=== PATIENT | male | born 1960 | race Caucasian/White ===

== ENCOUNTER 2018-12-23 07:17 | Inpatient (IN) | payer OTHER ==
[~2018-12-23] VITALS: Ht 177.8 cm; Wt 145.1 kg
[~2018-12-23 07:17] MED LIST: LASIX20 MG; LOSARTAN POTASS50 MG; LOSARTAN-HCTZ1 EAC2; METFORMIN HCL500 MG; METOPROLOL SUC100 MG; XARELTO20 MG
[2018-12-23] MEDS ORDERED: JARDIANCE25 MG (07:30)
[2018-12-23] MEDS ORDERED: FORTAMET1000 MG (07:30)
[2018-12-23] MEDS ORDERED: LIPITOR40 MG (07:31)
[2018-12-23] MEDS ORDERED: CARDURA (07:32)
[2018-12-23] MEDS ORDERED: ALLOPURINOL300 MG (07:32)
[2018-12-23] MEDS ORDERED: VITAMIN B-125000 MC2 (07:33)
[2018-12-23] MEDS ORDERED: CENTRUM MEN'S1 EACH (07:34)
[2018-12-24] MEDS ORDERED: CARDURA1 MG (08:13)
== END 2018-12-29 12:08 | disposition home or self-care (01) | DRG 65 ==
LOC: ER 07:17 → MEDJ 19:12
PROVIDERS: ADMIT Internal Medicine
PROC: BW28ZZZ Computerized Tomography (CT Scan) of Head (ICD-10-PCS; principal; 2018-12-23)
PROC: 4A12X4Z Monitoring of Cardiac Electrical Activity, External Approach (ICD-10-PCS; 2018-12-23)
PROC: B246ZZZ Ultrasonography of Right and Left Heart (ICD-10-PCS; 2018-12-24)
PROC: B345ZZZ Ultrasonography of Bilateral Common Carotid Arteries (ICD-10-PCS; 2018-12-24)
PROC: B030ZZZ Magnetic Resonance Imaging (MRI) of Brain (ICD-10-PCS; 2018-12-24)
DX: I63.412 Cerebral infarction due to embolism of left middle cerebral artery (principal); G81.91 Hemiplegia, unspecified affecting right dominant side; R47.81 Slurred speech; G47.33 Obstructive sleep apnea (adult) (pediatric); R47.01 Aphasia; I48.0 Paroxysmal atrial fibrillation; I10 Essential (primary) hypertension; R42 Dizziness and giddiness; E78.00 Pure hypercholesterolemia, unspecified; E11.9 Type 2 diabetes mellitus without complications; J44.9 Chronic obstructive pulmonary disease, unspecified; E66.8 Other obesity; Z79.01 Long term (current) use of anticoagulants; Z99.81 Dependence on supplemental oxygen
CPT/HCPCS: 70553

== ENCOUNTER 2019-04-18 15:53 | Emergency (ER) | payer OTHER ==
[~2019-04-18] VITALS: Ht 177.8 cm; Wt 148.3 kg
[~2019-04-18 15:53] MED LIST changes: +ALLOPURINOL300 MG; +CARDURA; +CARDURA1 MG; +CENTRUM MEN'S1 EACH; +FORTAMET1000 MG; +JARDIANCE25 MG; +LIPITOR40 MG; +VITAMIN B-125000 MC2
[2019-04-18] MEDS ORDERED: LEVOTHYROXINE25 MCG (16:32)
== END 2019-04-18 22:57 | disposition home or self-care (01) ==
LOC: ER 15:53
DX: S30.0XXA Contusion of lower back and pelvis, initial encounter (principal); R42 Dizziness and giddiness; R41.0 Disorientation, unspecified; W18.09XA Striking against other object with subsequent fall, initial encounter; Y93.89 Activity, other specified; Y92.89 Other specified places as the place of occurrence of the external cause; Y99.8 Other external cause status

== ENCOUNTER → 2020-12-25 07:48 | Outpatient (CLI) | payer OTHER ==
[~2020-12-25 07:48] MED LIST changes: +LEVOTHYROXINE25 MCG
== END | disposition home or self-care (01) ==
LOC: NUCLEAR 07:00
PROVIDERS: ATTEND Internal Medicine Cardiovascular Disease
DX: I20.9 Angina pectoris, unspecified (principal); E78.5 Hyperlipidemia, unspecified; R03.0 Elevated blood-pressure reading, without diagnosis of hypertension; I42.8 Other cardiomyopathies
CPT/HCPCS: 78452; 93017; A9500

== ENCOUNTER 2021-04-17 13:13 | Emergency (ER) | payer OTHER ==
[~2021-04-17] VITALS: Ht 180.3 cm; Wt 132.0 kg
[2021-04-17] MEDS ORDERED: DUI500 PO (15:57)
== END 2021-04-17 16:06 | disposition home or self-care (01) ==
LOC: ER 13:13
DX: R53.81 Other malaise (principal); M79.605 Pain in left leg

== ENCOUNTER 2022-12-17 07:02 | Outpatient (CLI) | payer OTHER ==
[~2022-12-17 07:02] MED LIST changes: +DUI500 PO
== END 2022-12-17 07:09 | disposition home or self-care (01) ==
LOC: SONOGRAMA 07:02
PROVIDERS: ATTEND Internal Medicine
DX: R10.30 Lower abdominal pain, unspecified (principal); R10.10 Upper abdominal pain, unspecified

== ENCOUNTER 2023-12-15 18:05 | Inpatient (IN) | payer OTHER ==
[~2023-12-15] VITALS: Ht 152.4 cm; Wt 131.5 kg
--- NOTE | 2023-12-15 18:32 | NUR ---
PTE ALERTA Y ORIENTADO X3, REFIERE DOLOR DE PECHO Y DIFICULTAD RESPIRATORIAL. AL MOMENTO DE TRIAGE SE OBSERVA PTE CON DISTRESS RESPIRATORIO, SATURANDO 95%. SE REALIZA EKG Y SE PRESENTA A . SE ACOMODA PTE EN UNIDAD DE CHEST PAIN Y SE CONECTA A MONITOR CARDIACO Y OXIMETRIA DE PULSO CONTINUA.
--- NOTE | 2023-12-15 19:34 | NUR ---
SE RECIBE A PTE MASCULINO DE 62 ANOS POR DIFICULTAD RESPIRATORIA Y PALPITACIONES EN LA UNIDAD DE DOLOR DE PECHO EL CUAL ES COLOCADO EN CAMA BAJA CONECTADO A MONITOR CARDIACO Y OXYMETRIA DE PULSO. SE COLOCAN DOS CANALIZACIONES EN BRAZO HOLDEN Y SE RECOLECTAN MUESTRAS DE LAB [facility] EL PROTOCOLOCO DE DOLOR DE PECHO. SE COLOCA CANULA NASAL A 4 LI/HR DE FORMA PREVENTIVA.
[2023-12-15] MEDS ORDERED: LEVALBUTEROL HCL 0.63 MG/3 ML SOLUTION IH ONE (20:30)
[2023-12-15] MEDS ORDERED: GUAIFENESIN/DEXTROMETHORPHAN 10ML BLIST.PACK PO ONE (20:30)
[2023-12-15] MEDS ORDERED: GUAIFENESIN/DEXTROMETHORPHAN 5ML BLIST.PACK PO ONE (20:54)
[2023-12-15 21:03] LABS: HEMATOCRIT 40.1 % (39.0-48.0); HEMOGLOBIN 13.7 g/dL (13-16.00); MEAN CORPUSCULAR HEMOGLOBIN 31.7 pg (27.00-32.0); PLATELET COUNT 218 K/uL (150-450); RED BLOOD COUNT 4.31 M/uL (4.00-6.00); RED CELL DISTRIBUTION WIDTH 13.9 % (11.5-14.5)
[2023-12-15 21:06] LABS: ABG PH 7.465 (7.35-7.45); ABG PO2 81.7 mmHg (80-100); ABG pCO2 34.2 mmHg (35-45); SaO2 96.7 %
[2023-12-15 21:07] LABS: ALBUMIN 3.3 gm/dL (3.4-5.0); BILIRUBIN TOTAL 0.59 mg/dL (0.3-1.2); CALCIUM 8.6 mg/dL (8.5-10.1); GFR 75.96; GLOBULINA 4.7 G/DL (2.4-3.5); POTASSIUM 3.96 mEq/L (3.5-5.1)
[2023-12-15 21:07] LABS: BASE EXCESS 0.9 mmol/l; Tco2 25.1 mmol/l; puncture site BRADIAL RIGHT
[2023-12-15 21:08] LABS: allen test SATISFACTORY; o2 36 %
--- NOTE | 2023-12-15 23:21 | NUR ---
SE RECIBE PTE ALERTA Y ORIENTADO POR REVA ESFERAS CON CANULA NALSA A 3LT. ESTA CONECTADO A MONITOR CARDIACO, NBP Y OXIMETRIA CONTINUA. TIENE CANALIZACIONES X2 PATENTE DAVIDA DE EDEMA Y ERITEMA.
--- NOTE | 2023-12-15 23:22 | NUR ---
PTE SE ENCUENTRA EN DAX BAJA, BARANADAS ELEVADAS, FRENOS AJUSTADOS Y TIMBRE ACCESIBLE.
[2023-12-16] MEDS ORDERED: FUROsemide 20 MG/2 ML VIAL IV SCH (00:52)
[2023-12-16] MEDS ORDERED: NITROGLYCERIN IN 5 % DEXTROSE 250 ML IV SCH (00:54)
[2023-12-16] MEDS ORDERED: ACETAMINOPHEN 500 MG GEL..CAP PO PRN (01:00)
[2023-12-16] MEDS ORDERED: INSULIN LISPRO 1,000 UNIT/10 ML UNITS SUBCUTANEO PRN (01:00)
[2023-12-16] MEDS ORDERED: METHYLPREDNISOLONE SOD SUCC 125 MG VIAL IV ONE (01:00)
[2023-12-16] MEDS ORDERED: AMIODARONE HCL 50 MG/ML AMPUL IV ONE ×2 (01:00→01:08)
[2023-12-16] MEDS ORDERED: DEXTROSE 50 % IN WATER 0.5 G/ML DISP.SYRIN IV PRN (01:00)
[2023-12-16] MEDS ORDERED: IPRATROPIUM BROMIDE 0.5 MG/2.5 ML AMPUL.NEB IH SCH (01:00)
[2023-12-16] MEDS ORDERED: LEVALBUTEROL HCL 1.25 MG/3 ML SOLUTION IH SCH (01:00)
[2023-12-16] MEDS ORDERED: NITROGLYCERIN IN 5 % DEXTROSE 50 MG/250 ML BOTTLE IV ONE (01:08)
[2023-12-16] MEDS ORDERED: FUROsemide 20 MG/2 ML VIAL ONE ×2 (01:09→21:31)
[2023-12-16] MEDS ORDERED: METHYLPREDNISOLONE SOD SUCC 40 MG VIAL ONE (01:10)
[2023-12-16 03:07] LABS: D DIMER 0.81 MG/L; INR 1.22; PARTIAL THROMBOPLASTIN TIME 36.8 SECONDS (22.0-34.0); PH,URINE 6.5 (5.0-8.0); PROTHROMBIN TIME 12.6 SECONDS (9.0-11.5); URINE APPEARANCE Clear; URINE BILIRRUBIN Negative (NEGATIVE); URINE BLOOD Moderate; URINE COLOR Yellow; URINE GLUCOSE Negative (NEGATIVE); URINE LEUKOCYTE Negative; URINE NITRATE Negative
[2023-12-16 03:08] LABS: URINE BACTERIA 57.9 uL (0.0-1933); URINE EPITHELIAL CELLS 27.5 uL (0.0-38.8); URINE RBC 189.9 uL (0.0-20.8); URINE WBC 24.2 uL (0.0-23.2)
[2023-12-16 03:18] LABS: URINE PROTEIN 300 (NEGATIVE)
[2023-12-16] MEDS ORDERED: IPRATROPIUM BROMIDE 0.5 MG/2.5 ML AMPUL.NEB IH ONE ×5 (03:25→21:56)
[2023-12-16] MEDS ORDERED: LEVALBUTEROL HCL 1.25 MG/3 ML SOLUTION IH ONE (03:25)
[2023-12-16] MEDS ORDERED: DEXTROSE 50 % IN WATER 0.5 G/ML VIAL IV PRN (06:45)
[2023-12-16] MEDS ORDERED: AMIODARONE IN DEXTROSE,ISO-OSM 360 MG/200 ML IV.SOLN IV ONE ×2 (08:03→20:26)
[2023-12-16] MEDS ORDERED: INSULIN LISPRO 1,000 UNIT/10 ML UNITS SUBCUTANEO ONE ×3 (08:37→15:55)
[2023-12-16] MEDS ORDERED: FAMOTIDINE/PF 20 MG/2 ML VIAL ONE (08:37)
[2023-12-16] MEDS ORDERED: RIVAROXABAN 20 MG TABLET PO SCH (09:00)
[2023-12-16] MEDS ORDERED: FAMOTIDINE/PF 20 MG in 0.9 % SODIUM CHLORIDE 8 ML IV PUSH SCH (09:00)
[2023-12-16] MEDS ORDERED: ATORVASTATIN CALCIUM 40 MG TABLET PO SCH (09:00)
[2023-12-16] MEDS ORDERED: CEFTRIAXONE SODIUM 2,000 MG in DEXTROSE 5 % IN WATER 100 ML IV SCH (12:00)
[2023-12-16] MEDS ORDERED: DOXYCYCLINE HYCLATE 100 MG TABLET PO SCH (17:00)
[2023-12-16] MEDS ORDERED: DOXYCYCLINE HYCLATE 100 MG CAPSULE PO SCH (17:00)
[2023-12-17] MEDS ORDERED: INSULIN LISPRO 1,000 UNIT/10 ML UNITS SUBCUTANEO ONE ×3 (00:38→20:48)
[2023-12-17 02:57] LABS: HEMATOCRIT 40.4 % (39.0-48.0); HEMOGLOBIN 13.8 g/dL (13-16.00); MEAN CELL VOLUME 92.5 fL (80.0-100.00); MEAN CORPUSCULAR HEMOGLOBIN 31.5 pg (27.00-32.0); MEAN CORPUSCULAR HGB CONC 34.1 g/dl (32.0-36.0); PLATELET COUNT 233 K/uL (150-450); RED BLOOD COUNT 4.37 M/uL (4.00-6.00); RED CELL DISTRIBUTION WIDTH 13.9 % (11.5-14.5)
[2023-12-17 03:50] LABS: BILIRUBIN TOTAL 0.42 mg/dL (0.3-1.2); CALCIUM 8.7 mg/dL (8.5-10.1); CREATININE SERUM 1.1 mg/dL (0.70-1.30); GFR 67.83; GLOBULINA 4.5 G/DL (2.4-3.5); MAGNESIUM 2.4 mg/dL (1.8-2.4); PHOSPHOROUS 3.7 mg/dL (2.5-4.9); POTASSIUM 4.13 mEq/L (3.5-5.1); TOTAL PROTEIN 7.5 gm/dL (6.4-8.2)
[2023-12-17 03:53] LABS: C-REACTIVE PROTEIN 11.4 MG/DL (0.00-0.29)
[2023-12-17] MEDS ORDERED: LEVOTHYROXINE SODIUM 25 MCG TABLET PO SCH (06:00)
[2023-12-17] MEDS ORDERED: NITROGLYCERIN IN 5 % DEXTROSE 250 ML IV SCH (07:15)
[2023-12-17] MEDS ORDERED: LEVALBUTEROL HCL 1.25 MG/3 ML SOLUTION IH ONE (08:41)
[2023-12-17] MEDS ORDERED: IPRATROPIUM BROMIDE 0.5 MG/2.5 ML AMPUL.NEB IH ONE (08:41)
[2023-12-17] MEDS ORDERED: AMIODARONE IN DEXTROSE,ISO-OSM 360 MG/200 ML IV.SOLN IV ONE ×2 (08:43→22:17)
[2023-12-17] MEDS ORDERED: INSULIN GLARGINE,HUM.REC.ANLOG 1,000 UNITS/10 ML UNITS SUBCUTANEO SCH (09:00)
[2023-12-17] MEDS ORDERED: AMIODARONE HCL 200 MG TABLET PO SCH (09:00)
[2023-12-17] MEDS ORDERED: METOPROLOL SUCCINATE 50 MG TAB.SR.24H PO SCH (10:23)
[2023-12-17] MEDS ORDERED: ACETAMINOPHEN 500 MG GEL..CAP PO ONE ×2 (17:46→20:13)
[2023-12-17] MEDS ORDERED: LEVALBUTEROL HCL 0.63 MG/3 ML SOLUTION IH ONE (18:02)
[2023-12-17] MEDS ORDERED: FAMOTIDINE/PF 20 MG/2 ML VIAL ONE (20:44)
[2023-12-17] MEDS ORDERED: FAMOTIDINE/PF 20 MG in 0.9 % SODIUM CHLORIDE 8 ML IV PUSH SCH (21:00)
[2023-12-17] MEDS ORDERED: METOPROLOL SUCCINATE 50 MG TAB.SR.24H PO STA (22:11)
[2023-12-18] MEDS ORDERED: INSULIN LISPRO 1,000 UNIT/10 ML UNITS SUBCUTANEO ONE (08:21)
[2023-12-18] MEDS ORDERED: AMIODARONE IN DEXTROSE,ISO-OSM 360 MG/200 ML IV.SOLN IV ONE (11:20)
[2023-12-18] MEDS ORDERED: INSULIN LISPRO 1,000 UNIT/10 ML UNITS SUBCUTANEO SCH (12:00)
[2023-12-18] MEDS ORDERED: INSULIN GLARGINE,HUM.REC.ANLOG 1,000 UNITS/10 ML UNITS SUBCUTANEO ONE (12:43)
[2023-12-18] MEDS ORDERED: CEFAZOLIN SODIUM 2,000 MG in 0.9 % SODIUM CHLORIDE 100 ML IV SCH (17:00)
[2023-12-19] MEDS ORDERED: AMIODARONE HCL 200 MG TABLET PO SCH (09:00)
[2023-12-19] MEDS ORDERED: METOPROLOL TARTRATE 50 MG TABLET PO SCH (09:00)
[2023-12-19] MEDS ORDERED: 0.9 % SODIUM CHLORIDE 10 ML VIAL IJ ONE (09:01)
[2023-12-19] MEDS ORDERED: LOSARTAN POTASSIUM 50 MG TABLET PO SCH (12:00)
[2023-12-20 06:39] LABS: HEMATOCRIT 42.8 % (39.0-48.0); HEMOGLOBIN 14.8 g/dL (13-16.00); MEAN CELL VOLUME 89.1 fL (80.0-100.00); MEAN CORPUSCULAR HEMOGLOBIN 30.8 pg (27.00-32.0); MEAN CORPUSCULAR HGB CONC 34.5 g/dl (32.0-36.0); PLATELET COUNT 307 K/uL (150-450); RED CELL DISTRIBUTION WIDTH 14.3 % (11.5-14.5)
[2023-12-20] MEDS ORDERED: AMLODIPINE BESYLATE 10 MG TABLET PO SCH (21:00)
[2023-12-21] MEDS ORDERED: INSULIN LISPRO 1,000 UNIT/10 ML UNITS SUBCUTANEO SCH (17:00)
[2023-12-22] MEDS ORDERED: AMLODIPINE BESYLATE 5 MG TABLET PO SCH (21:00)
[2023-12-23] MEDS ORDERED: INSULIN LISPRO 1,000 UNIT/10 ML UNITS SUBCUTANEO SCH (17:00)
== END 2023-12-23 18:06 | disposition home or self-care (01) | DRG 291 ==
LOC: ER 18:06 → ICU-2 12-16 01:00 → MEDJ 12-18 13:08
PROVIDERS: Emergency Medicine; General Practice; Internal Medicine Critical Care Medicine; Internal Medicine Infectious Disease; ADMIT Internal Medicine; ATTEND Internal Medicine
PROC: 4A12X4Z Monitoring of Cardiac Electrical Activity, External Approach (ICD-10-PCS; principal; 2023-12-16)
PROC: BB24ZZZ Computerized Tomography (CT Scan) of Bilateral Lungs (ICD-10-PCS; 2023-12-16)
PROC: B246ZZZ Ultrasonography of Right and Left Heart (ICD-10-PCS; 2023-12-16)
PROC: 3E0F7GC Introduction of Other Therapeutic Substance into Respiratory Tract, Via Natural or Artificial Opening (ICD-10-PCS; 2023-12-16)
DX: I50.33 Acute on chronic diastolic (congestive) heart failure (principal); J15.211 Pneumonia due to Methicillin susceptible Staphylococcus aureus; J44.1 Chronic obstructive pulmonary disease with (acute) exacerbation; I48.20 Chronic atrial fibrillation, unspecified; E11.65 Type 2 diabetes mellitus with hyperglycemia; I27.20 Pulmonary hypertension, unspecified; E03.9 Hypothyroidism, unspecified; G47.33 Obstructive sleep apnea (adult) (pediatric); Z74.01 Bed confinement status; Z79.01 Long term (current) use of anticoagulants; Z79.84 Long term (current) use of oral hypoglycemic drugs